=== PATIENT | female | born 1965 | race Caucasian/White ===

== ENCOUNTER 2024-05-17 10:32 | Emergency (ER) | payer MEDICAID ==
[~2024-05-17] VITALS: Ht 162.6 cm; Wt 91.9 kg
[2024-05-17 12:36] VITALS: TEMP 98.3
[2024-05-17 13:05] VITALS: PULSE 71
[2024-05-17] MEDS ORDERED: RIVA20TA PO (14:02)
[2024-05-17] MEDS: rivaroxaban 20mg tablet PO ONE (14:19)
[2024-05-17 14:20] VITALS: BP 108/72; RESP 18; O2SAT 95
== END 2024-05-17 14:22 | disposition home or self-care (01) ==
LOC: ER 10:32
DX: M79.661 Pain in right lower leg (principal); Z79.899 Other long term (current) drug therapy
CPT/HCPCS: 93971; 99284